=== PATIENT | female | born 2000 | race Caucasian/White ===

== ENCOUNTER 2021-02-12 17:29 | Emergency (ER) | payer MEDICAID ==
[~2021-02-12] VITALS: Ht 157.5 cm; Wt 59.0 kg
[2021-02-12 18:15] VITALS: BP 116/63
== END 2021-02-12 18:45 | disposition left against medical advice (07) ==
LOC: ER 17:29
DX: K08.89 Other specified disorders of teeth and supporting structures (principal); Z53.21 Procedure and treatment not carried out due to patient leaving prior to being seen by health care provider